=== PATIENT | male | born 2000 | race Asian ===

== ENCOUNTER 2023-08-30 01:42 | Emergency (ER) | payer SELFPAY ==
[~2023-08-30] VITALS: Ht 167.6 cm; Wt 81.6 kg
[2023-08-30] MEDS ORDERED: HYDROCODONE/APAP 5/325MG TABLET ONE (02:04)
[2023-08-30] MEDS ORDERED: TDAP [DIPH/PERTUSSIS/TET] 0.5 ML VIAL IM ONE (02:05)
[2023-08-30] MEDS: HYDROCODONE/APAP 5/325MG TABLET PO ONE (02:11)
[2023-08-30] MEDS: TDAP [DIPH/PERTUSSIS/TET] 0.5 ML VIAL IM ONE (02:26)
[2023-08-30] MEDS ORDERED: HYDR-3972 PO (02:31)
[2023-08-30] MEDS ORDERED: CIPR-262 PO (02:47)
[2023-08-30] MEDS ORDERED: CIPROFLOXACIN HCL 500 MG TABLET ONE (02:51)
[2023-08-30] MEDS: CIPROFLOXACIN HCL 500 MG TABLET PO ONE (02:52)
[2023-08-30 02:53] VITALS: BP 118/64; TEMP 98.2; O2SAT 98
== END 2023-08-30 02:57 | disposition home or self-care (01) ==
LOC: ER 01:44
DX: S61.212A Laceration without foreign body of right middle finger without damage to nail, initial encounter (principal); Z79.899 Other long term (current) drug therapy; W45.8XXA Other foreign body or object entering through skin, initial encounter; Y93.89 Activity, other specified; Y92.89 Other specified places as the place of occurrence of the external cause; Y99.8 Other external cause status
CPT/HCPCS: 73140-TC; 90715